=== PATIENT | female | born 1955 | race Caucasian/White ===

== ENCOUNTER → 2017-01-30 | Outpatient (CLI) | payer OTHER ==
[~2017-01-30] MED LIST: DULOXETINE HCL60 MG PO; EFFEXOR XR PO; LASIX PO; LEVEMIR FL100 UNIT/1; LEVOTHYROXINE137 MCG PO; METFORMIN PO; MOBIC PO; TRULICITY1.5 MG/0.5 SUBQ; VICODIN 5/500 T1 TAB PO
--- NOTE | ~2017-01-30 | CR97 ---
[facility] A Service of [facility] RADIOLOGY TEXT RESULTS PATIENT: TANIAY FONSECA LOCATION: [facility] : 55 UNIT #: [id number] AGE: [address]: Sal Haq III, MD SEX: F ORDER DR: [id number] [facility] [address] [place], [place] [address] [id number] O MR#: [id number] Acc #: [id number] NAME: TANIYA FONSECA : 1955 SEX: F STUDY DATE/TIME: 01/30/2017 9:48 UNIT: [facility] ROOM: STUDY DESCRIPTION: CR Esophagram Attending Physician: Sal Haq III, M.D. Referring Physician: Sal Haq III, M.D. Ordering Physician: Sal Haq III, M.D. Primary Care Physician: Alice Dorado M.D. MEDICAL IMAGING REPORT This report is preliminary unless electronic signature is present EXAM Esophagram with fluoroscopy. DATE: 01/30/2017 HISTORY 61-year-old female with reflux, diarrhea, sensation of things getting stuck in the upper throat. The patient had laparoscopic band placement over 10 years ago, and states that it is not insufflated (it is decompressed) at this time. COMPARISON None. FINDINGS Rapid fluoroscopic imaging was obtained in the esophagus in various projection during ingestion of thin barium consistencies. No adilson penetration or aspiration was witnessed. There is normal distensibility of the thoracic esophagus and the imaged cervical esophagus without suspicious intraluminal filling defect, ulceration or high-grade stricture. There is, however, dysmotility and abnormal contractility within the lower third of the thoracic esophagus, somewhat inhibiting clearance. Gastric band device is located just slightly below the expected location of the esophagogastric junction, with small gastric pouch above the level of the band. However, no marginal erosions changes are identified. Despite that the band is not inflated, there is some smooth but benign appearing narrowing of the upper stomach as it courses through the band. This results in mild delay of contrast transit more distally into the stomach. Subsequently, 13 mm barium tablet was swallowed, passed readily from the esophagus to the level of the band, at which it became lodged. Cholecystectomy changes incidentally noted. [facility] A Service of [facility] RADIOLOGY TEXT RESULTS PATIENT: TANIYA FONSECA LOCATION: [facility] : 55 UNIT #: [id number] AGE: [address]: Sal Haq III, MD SEX: F ORDER DR: Fluoroscopy time 1.7 minutes with 66 total fluoroscopic images obtained. IMPRESSION 1. Gastric band device appears appropriately positioned. Despite the fact that the patient states that it is not inflated, there is smooth narrowing of the upper stomach as it courses through the band resulting in slight delay of contrast transit through the banded segment. No marginal erosions are seen at the band site. 2. Mild abnormal tertiary type contractions within the lower third of the esophagus, resulting in delayed contrast transit toward the stomach. 3. 13 mm barium tablet passed readily from the esophagus into the upper stomach and became lodged just above the level of the gastric band. Dictated by... Belgica Rosales M.D. THIS IS AN ELECTRONICALLY VERIFIED REPORT Belgica Rosales M.D. at 01/31/2017 7:11 AM MARCK/olivier TD: 01/30/2017 13:42 JOB #: [id number] MEDICAL IMAGING REPORT Page 1 of 1 COPY
== END | disposition home or self-care (01) ==
LOC: CRAD 09:14
DX: K21.9 Gastro-esophageal reflux disease without esophagitis (principal); R13.10 Dysphagia, unspecified; K31.89 Other diseases of stomach and duodenum; K22.8 Other specified diseases of esophagus; Z98.84 Bariatric surgery status
CPT/HCPCS: 74220

== ENCOUNTER 2017-02-17 14:45 | Emergency (ER) | payer OTHER | END 2017-02-17 15:05 | disposition left against medical advice (07) | LOC: CED 14:45 | DX: Z53.21 Procedure and treatment not carried out due to patient leaving prior to being seen by health care provider (principal) ==

== ENCOUNTER → 2017-02-26 | Day surgery (SDC) | payer MEDICARE, OTHER ==
--- NOTE | ~2017-02-26 | OR ---
Unit #: [id number] #: [id number] Patient: TANIYA FONSECA [id number] [address] [place], [place] [address] [id number] O MR#: [id number] NAME: TANIYA FONSECA ROOM: Date of Procedure: 02/26/2017 Admission Date: 02/26/2017 Surgeon: Sal Haq III, M.D. : 1955 Attending Physician: Sal Haq III, M.D. Primary Care Physician: Dai Hussein M.D. OPERATIVE REPORT JOB NOTE: VERIFY CC LIST PREOPERATIVE DIAGNOSES Reflux, abdominal pain, and need for screening colonoscopy. POSTOPERATIVE DIAGNOSES Moderate gastritis near the cardia, mild duodenitis, and normal colonoscopy. PROCEDURES PERFORMED Esophagogastroduodenoscopy with biopsy and colonoscopy of the right colon. ANESTHESIA MAC. SPECIMENS Antrum was sent for TETE testing and cardia was biopsied for permanent pathology. COMPLICATIONS None apparent. INDICATIONS FOR PROCEDURE This is a 61-year-old lady who presented my office after having poor followup with her Lap-Band. She was complaining of some reflux and vomiting. A barium esophagram was ordered, which really did not show any evidence of slip. She is here today for upper and lower endoscopy. DESCRIPTION OF PROCEDURE After consent was obtained, the patient was brought to the endoscopy suite, placed in the left lateral decubitus position. We titrated the above sedation, and I passed an EGD scope easily into the esophagus under direct visualization. She had normal peristalsis. There were no evidence of any erosions, and her pouch appeared to be normal size. The scope easily passed through the opening of the band. She had some moderate gastritis near the cardia that was seen best on retroflexion of the scope. Also when the scope was retroflexed, there was no evidence of an erosion of her band. I then took a biopsy of the antrum for TETE testing. The pylorus was patent, and the first and second portions of duodenum were normal with the exception of some mild duodenitis. Again, I did obtain biopsies along the cardia where the area of moderate gastritis was. The scope was straightened and then carefully withdrawn. I then performed a Unit #: [id number] #: [id number] Patient: TANIYA FONSECA rectal exam. She had some small internal hemorrhoids. The scope was placed within the rectal vault. Air was insufflated, and she was noted to have a poor bowel prep. I was able to advance the scope all the way to the right colon. I was able to see the cecum, but could not get all the way down because of her morbid obesity and lack of length of the scope. I did not see any obvious masses down near the cecum. I then carefully withdrew the scope. She had normal mucosa. No evidence any polyps or masses. No diverticular disease was seen. Obviously, a small polyp could have been missed with her poor bowel prep. The scope was retroflexed within the rectum. No other masses were seen. The scope was then carefully withdrawn. The patient tolerated the procedure without any problems and returned to the recovery room in stable condition. Dictated by... Sal Haq III, M.D. VCL/leni TD: 02/27/2017 06:48 JOB #: [id number] OPERATIVE REPORT Page 1 of 1 X Sal Haq III, MD PROCEDURE OPERATIVE NOTE
== END | disposition home or self-care (01) ==
LOC: COPS 10:04
DX: K29.60 Other gastritis without bleeding (principal); K29.80 Duodenitis without bleeding; Z12.11 Encounter for screening for malignant neoplasm of colon; K64.8 Other hemorrhoids; K21.9 Gastro-esophageal reflux disease without esophagitis; I10 Essential (primary) hypertension; E03.9 Hypothyroidism, unspecified; E11.9 Type 2 diabetes mellitus without complications; Z79.4 Long term (current) use of insulin; F32.9 Major depressive disorder, single episode, unspecified; G47.30 Sleep apnea, unspecified; E66.01 Morbid (severe) obesity due to excess calories; Z68.41 Body mass index [BMI] 40.0-44.9, adult; N39.3 Stress incontinence (female) (male); Z79.899 Other long term (current) drug therapy; M19.90 Unspecified osteoarthritis, unspecified site; Z88.1 Allergy status to other antibiotic agents; Z98.84 Bariatric surgery status; Z98.890 Other specified postprocedural states
CPT/HCPCS: 43239; G0121; 82947; 87077; J2250